=== PATIENT | male | born 1995 | race Caucasian/White ===

== ENCOUNTER 2019-03-01 12:06 | Observation (INO) | payer MEDICAID ==
[2019-03-01] VITALS (8 sets, daily range): BP systolic 115–132; BP diastolic 49–83; PULSE 67–84; TEMP 97.8–98.5
[~2019-03-01] VITALS: Ht 185.4 cm; Wt 92.2 kg
[2019-03-01 12:45] LABS: COLLECTION METHOD CLEAN CATCH
[2019-03-01 12:48] LABS: BASO % 0.2 % (0.0-2.0); EOS # 0.1 (0.0-0.7); EOS % 0.4 % (0-4.0); GRAN # 12.7 (1.4-6.5); GRAN % 85.1 % (42.2-75.2); HEMATOCRIT 45.6 % (42.0-52.0); LYMPH # 1.4 (1.2-3.4); LYMPH % 9.4 % (20.0-51.0); MEAN CELL VOLUME 84 fl (80.0-100.0); MEAN CORPUSCULAR HEMOGLOBIN 30 pg (27.0-31.0); MEAN CORPUSCULAR HGB CONC 35 g/dl (33.0-37.0); MONO # 0.7 (0.1-0.6); MONO % 4.7 % (1.7-9.3); PLATELET COUNT 283 K/mm3 (130-400); REDCELL DISTRIBUTION WIDTH-CV 12.1 % (11.5-14.5)
[2019-03-01 13:05] LABS: ALANINE AMINOTRANSFERASE 27 U/L (21-72); ALBUMIN 4.6 gm/dL (3.5-5.0); ALKALINE PHOSPHATASE 59 U/L (50-136); ANION GAP 11 mmol/L (7-16); AST,SGOT 32 U/L (15-37); BILIRUBIN,TOTAL 0.7 mg/dL (0.0-1.0); BLOOD UREA NITROGEN 16 mg/dL (9-20); CALCIUM 9.5 mg/dL (8.4-10.2); CARBON DIOXIDE 27 mmol/L (22-30); CHLORIDE 102 mmol/L (98-107); CREATININE, serum 0.89 (0.66-1.25); GLUCOSE 100 mg/dL (74-106); POTASSIUM 4.1 mmol/L (3.4-5.0); SODIUM 140 mmol/L (137-145); TOTAL PROTEIN 7.7 gm/dL (6.4-8.2)
[2019-03-01 13:07] LABS: C-REACTIVE PROTEIN < 0.5 mg/dL (0.0-0.9)
[2019-03-01 13:22] LABS: MUCOUS Present /lpf; PH 8 (5-8); SQUAMOUS EPITHELIAL None Seen /hpf; URINE APPEARANCE Clear; URINE BACTERIA None Seen /hpf; URINE BILIRUBIN Negative (NEGATIVE); URINE BLOOD Negative (NEGATIVE); URINE COLOR Yellow; URINE GLUCOSE Negative (NEGATIVE); URINE KETONE Negative (NEGATIVE); URINE LEUKOCYTE ESTERASE Negative (NEGATIVE); URINE NITRATE Negative (NEGATIVE); URINE PROTEIN(semi-quant) Negative (NEGATIVE); URINE RBC 0-2 /hpf; URINE UROBILINOGEN Negative (NEGATIVE)
--- NOTE | 2019-03-01 19:40 | NUR ---
RECEIVED PACU REPORT FROM JOSE RUDOLPH.
--- NOTE | 2019-03-01 19:45 | NUR ---
PT TRAANSFERRED TO ROOM 222 PER BED FROM PACU. A&OX4. IV NS 20CC CRDIT. ABD LAP X3 CDI W/ BANDAIDS. ICE CHIPS PROVIDED. VSS. SCD'S ON BILAT. FAMILY AT BEDSIDE. VERY SUPPORTIVE.
--- NOTE | 2019-03-01 20:15 | NUR ---
IVF'S DC'D. NO NAUSEA. SEE MAR FOR PAIN MED GIVEN. TAKING WITH KIRA.
--- NOTE | 2019-03-01 20:45 | NUR ---
PT ASSISTED TO SIDE OF BED, VIKTOR WELL. PAIN MED HELPING. TAKING PO FLUIDS WELL. AMB IN BONE WITH ZIGZAGGER. VIKTOR WELL. BACK TO BED.
--- NOTE | 2019-03-01 22:30 | NUR ---
PT SITTING UP IN BED. PAIN LEVEL 3/10 AT THIS TIME. KEIRY SON CDI. VISITING WITH FAMILY AND FRIENDS. ENC PO FLUIDS. NO VOID YET.
[2019-03-02 00:14] VITALS: BP 130/61; PULSE 79; TEMP 97.7
[2019-03-02 03:43] VITALS: BP 113/53; PULSE 58; TEMP 97.8
--- NOTE | 2019-03-02 06:03 | NUR ---
PT SLEEPING SOUNDLY. NO RESP DISTRESS. NO EVIDENCE OF PAIN.
[2019-03-02] MEDS ORDERED: NORCO 325 MG-51 TAB PO (07:00)
[2019-03-02 08:08] VITALS: BP 127/61; PULSE 74; TEMP 98.3
--- NOTE | 2019-03-02 08:45 | NUR ---
Patient alert and oriented, answers questions appropriately. See assessment. Abdomen soft, non tender, non distended. Bowel sounds active x4 quads. +Flatus. Abdominal lap sites with edges well approximated, no redness or drainage noted. Post op exercises reviewed. No c/o at this time.
--- NOTE | 2019-03-02 09:51 | NUR ---
Initial visit; Patient and his Mom thanked Cdl [employer] Driver for looking in on him and offering spiritual care. Patient is doing well and mom stated they contacted their Zoning Technician yesterday so all is well.
--- NOTE | 2019-03-02 10:16 | NUR ---
SW informed by nurse that patient is discharging this morning. Patient is independent and does not require any services.
--- NOTE | 2019-03-02 10:33 | NUR ---
Discharge instructions reviewed with patient and family, verbalized understanding. Discharged via wheelchair to auto/home with family at 1030.
== END 2019-03-02 10:30 | disposition home or self-care (01) ==
LOC: COL.ER 12:06 → SURG 14:21 → EDBEDREQ 14:49 → SURG 03-02 10:30
PROVIDERS: Physician Assistant; ADMIT Surgery
DX: K35.80 Unspecified acute appendicitis (principal)
CPT/HCPCS: G0378; J1100; J1885; J2405; J2543; J2704; J3010; J7030; Q9967